=== PATIENT | female | born 1985 | race Caucasian/White ===

== ENCOUNTER → 2021-05-08 | Outpatient (CLI) | payer OTHER | LOC: M RAD 11:58 → EDSEX 11:58 | PROVIDERS: ATTEND Physician Assistant | DX: J45.30 Mild persistent asthma, uncomplicated (principal) ==

== ENCOUNTER 2021-05-23 06:11 | Observation (INO) | payer OTHER ==
[~2021-05-23] VITALS: Ht 157.5 cm; Wt 70.0 kg
[~2021-05-23 06:11] MED LIST: ALBU8.5H; BUDE10.22; CETI-24; HEPARIN SOD (PORCINE) 5000UNITS/ML 1ML VIAL/SYRINGE SQ ONE; LR 1,000 ML IV ONE; MONT10TA97; TEST200I14; ceFAZolin SOD 2 GM in IV 1 EA IV ONE
[2021-05-23] MEDS ORDERED: DESFLURANE 240 ML INHALANT As Ordered ONE (07:08)
[2021-05-23] MEDS ORDERED: BUPIVACAINE LIPOSOME/PF 1.3% 20ML VIAL (13.3MG/ML)(EXPAREL)(C9290 PER1MG) As Ordered ONE (07:12)
[2021-05-23] MEDS ORDERED: GENTAMICIN SULF 80MG/2ML VIAL As Ordered ONE (07:12)
[2021-05-23] MEDS ORDERED: ROCURONIUM BROMIDE 50 MG/5 ML VIAL As Ordered ONE (07:14)
[2021-05-23] MEDS ORDERED: propofoL 200 MG/20 ML VIAL As Ordered ONE ×2 (07:14→09:42)
[2021-05-23] MEDS ORDERED: LIDOCAINE 2% 100MG/5ML SDV (FOR ANES.) As Ordered ONE ×2 (07:14→07:15)
[2021-05-23] MEDS ORDERED: ONDANSETRON 4MG/2ML VIAL As Ordered ONE (07:15)
[2021-05-23] MEDS ORDERED: MIDAZOLAM INJ 2MG/2ML VIAL (J2250 PER 1MG) As Ordered ONE (07:15)
[2021-05-23] MEDS ORDERED: fentaNYL 100 MCG/2 ML INJECTION As Ordered ONE ×2 (07:15→08:32)
[2021-05-23] MEDS ORDERED: dexameTHASONE 4 MG/ML 1ML VIAL (J1100 PER 1MG) As Ordered ONE (07:15)
[2021-05-23] MEDS ORDERED: SCOPOLAMINE 1MG TRANSDERMAL PATCH TOP ONE (07:20)
[2021-05-23] MEDS ORDERED: VECURONIUM BROMIDE 10MG VIAL As Ordered ONE (08:11)
[2021-05-23] MEDS ORDERED: ACETAMINOPHEN 1000MG 100ML IV BTL (OFIRMEV) (J0131 PER 10MG) As Ordered ONE (09:16)
[2021-05-23] MEDS ORDERED: KETOROLAC 60MG 2ML VIAL As Ordered ONE (09:44)
[2021-05-23] MEDS ORDERED: SUGAMMADEX SODIUM 500 MG/5 ML VIAL (BRIDION) As Ordered ONE (09:45)
[2021-05-23] MEDS ORDERED: ONDANSETRON 4MG/2ML VIAL IV PRN ×2 (11:10→11:25)
[2021-05-23] MEDS ORDERED: traMADol 50 MG TAB PO PRN (11:10)
[2021-05-23] MEDS ORDERED: KETOROLAC TROMETHAMINE 10 MG TAB PO PRN (11:10)
[2021-05-23] MEDS ORDERED: ACETAMINOPHEN TAB 650MG DOSE (2X325MG) PO PRN (11:10)
[2021-05-23] MEDS ORDERED: fentaNYL 100 MCG/2 ML INJECTION IV PRN (11:25)
[2021-05-23] MEDS ORDERED: LR 1,000 ML IV SCH (11:25)
[2021-05-23] MEDS ORDERED: oxyCODONE 5MG TAB PO PRN (11:25)
[2021-05-23 16:45] VITALS: BP 123/83
[2021-05-23 17:15] VITALS: BP 130/85
[2021-05-23] MEDS: LR 1,000 ML IV SCH (17:24)
[2021-05-23] MEDS: ceFAZolin SOD 1 GM in D5W MINI-BAG PLUS 50 ML IV SCH (17:24)
[2021-05-23 18:15] VITALS: BP 118/83
[2021-05-23 19:15] VITALS: BP 108/78
[2021-05-23 20:00] VITALS: BP 110/68
[2021-05-24] MEDS: ceFAZolin SOD 1 GM in D5W MINI-BAG PLUS 50 ML IV SCH ×2 (00:52→08:07)
[2021-05-24 02:00] VITALS: BP 110/67
[2021-05-24] MEDS ORDERED: SYMBICORT 80/4.5MCG INHALER 6GM INH SCH (04:00)
[2021-05-24 06:00] VITALS: BP 109/76
[2021-05-24] MEDS: LR 1,000 ML IV SCH (07:01)
[2021-05-24] MEDS ORDERED: TRAM50TA2 PO (08:46)
== END 2021-05-24 13:25 | disposition home or self-care (01) ==
LOC: EDSEX → M SDC 06:11 → EDUNIT# 07:30 → M SDC 11:07 → M MS5PR 11:08
PROVIDERS: ADMIT Plastic Surgery Surgery of the Hand; ATTEND Plastic Surgery Surgery of the Hand
DX: F64.9 Gender identity disorder, unspecified (principal); N62 Hypertrophy of breast; F41.9 Anxiety disorder, unspecified; F32.9 Major depressive disorder, single episode, unspecified; F43.10 Post-traumatic stress disorder, unspecified; F90.9 Attention-deficit hyperactivity disorder, unspecified type; K21.9 Gastro-esophageal reflux disease without esophagitis; K58.9 Irritable bowel syndrome, unspecified; J45.909 Unspecified asthma, uncomplicated; R06.83 Snoring; Z91.013 Allergy to seafood; Z91.048 Other nonmedicinal substance allergy status; Z79.890 Hormone replacement therapy; Z79.51 Long term (current) use of inhaled steroids
CPT/HCPCS: 19303; 19350; 81025; 88305; 96365; 96376; C9290; J0131; J0690; J1100; J1580; J1644; J1885; J2250; J2405; J3010